=== PATIENT | male | born 1965 | race Caucasian/White ===

== ENCOUNTER 2021-03-11 21:28 | Outpatient (REF) | payer BC, SELFPAY ==
[2021-03-11 21:48] LABS: Abs Immature Grans 0.02 10^3/uL (0.0-0.06); Absolute Basophil Count 0.04 10^3/uL (0.0-0.2); Absolute Eosinophil Count 0.11 10^3/uL (0.0-0.7); Absolute Lymphocyte Count 1.34 10^3/uL (1.2-3.4); Absolute Monocyte Count 0.52 10^3/uL (0.1-0.8); Absolute Neutrophil Count 5.13 10^3/uL (1.2-6.7); Basophils % 0.6; Eosinophils % 1.5; HCT 46.8 % (40.0-50.0); HGB 15.1 g/dL (13.5-17.5); Immature Grans % 0.3; Lymphocytes % 18.7; MCH 30.3 pg (27.0-33.0); MCHC 32.3 % (32.0-36.0); MCV 93.8 fL (80-95); MPV 10.4 fL (8.0-11.0); Monocytes % 7.3; Neutrophils % 71.6; Nucleated RBC 0 %; Platelet Count 241 10^3/uL (130-400); RBC 4.99 10^6/uL (4.36-5.78); RDW 12.7 % (11.8-14.1); RDW-SD 43.9 fL; WBC 7.16 10^3/uL (4.4-10.8)
[2021-03-11 22:02] LABS: Anion Gap 9.3 mmol/L (3-11); BUN 25 mg/dL (7-18); CO2 27.7 mmol/L (21.0-32.0); CREATININE 1.2 mg/dL (0.70-1.30); Calcium 8.9 mg/dL (8.5-10.1); Calculated LDL 132 mg/dL (<100); Chloride 106 mmol/L (98-107); Cholesterol 210 mg/dL (<200); Glucose 88 mg/dL (74-106); HDL Cholesterol 48 mg/dL (40-60); Sodium 143 mmol/L (136-145); TSH (W/Ref FT4) 1.53 uIU/mL (0.36-3.74); Triglyceride 153 mg/dL (<150)
[2021-03-14 09:45] LABS: PSA, Screening 2.9 ng/mL (0.0-3.5)
== END 2021-03-11 21:29 | disposition home or self-care (01) ==
LOC: NCHCN 21:28
PROVIDERS: PCP Internal Medicine; Visit Provider Internal Medicine
DX: K20.80 Other esophagitis without bleeding (principal); I48.0 Paroxysmal atrial fibrillation; Z13.220 Encounter for screening for lipoid disorders; Z12.5 Encounter for screening for malignant neoplasm of prostate; Z00.00 Encounter for general adult medical examination without abnormal findings; N20.0 Calculus of kidney
CPT/HCPCS: 80048; 80061; 84153; 84443; 85025

== ENCOUNTER 2022-07-21 21:16 | Outpatient (REF) | payer BC, SELFPAY ==
--- OUTSIDE RECORDS SUMMARY | 2022-07-21 21:27 | XMS_ITS | CCD ---
Author Name Unknown Address [address] [place] [address] [id number] Organization Unknown Address [address] [place] [address] [id number] Care Team Providers Care [facility] Social Worker Name Role Phone HE GILBERT Attending Physician [phone] Vital Signs Unknown or Not Available. Allergies Allergy Code Allergy Type Reaction Status PENICILLINS (CLASS) 0 Drug allergy Hives Act ariel Procedures Unknown or Not Available. History of Immunizations Unknown or Not Available. Problems Unknown or Not Available. Results Unknown or Not Available. Active Medications Medication Code Dose Units Frequency Route Modificatio n Start Date/Time Dilt-XR 120MG Oral Capsule, Extended Release, 24 HR [id number] 120 MILLIGRAMS DAILY ORAL 05/2018 09:32 Prescription Detail TAKE 120 MILLIGRAMS ORAL DAILY Pantoprazole Sodium 20MG Oral Tablet, Enteric Coated [id number] 20 MILLIGRAMS DAILY ORAL 05/2018 09:32 Prescription Detail TAKE 20 MILLIGRAMS ORAL DAILY Osteo Bi-Flex 200 MG-250 MG Oral Tablet [id number] 1 EACH TWICE A DAY ORAL 06/07 12:20 Prescription Detail TAKE 1 EACH ORAL TWICE A DAY Medications Administered During Visit Unknown or Not Available. Encounters Encounter Diagnosis Diagnosis Code Start Date Strain of muscle, fascia and tendon of the posterior muscle group at thigh level, left thigh, subsequent encounter [id number] 05/13/2021 Social History Smoking Status Code Start Date End Date Never smoker [id number] Patient Decision Aids Unknown or Not Available. Discharge Instructions You were admitted to [facility] on 05/13/2021 15:16 with a principal diagnosis of Strain of msl/fasc/tnd post grp at thi lev, left thigh, subs You were discharged from [facility] on 06/10/2021 13:07 Should you have any questions prior to discharge, please contact a member of your healthcare team. If you have left the hospital and have any questions, please contact your primary care physician. Chief Complaint and Reason For Visit Unknown or Not Available. Function Status Unknown or Not Available. Plan of Care Unknown or Not Available. Referral/Transition of Care Unknown or Not Available.
--- OUTSIDE RECORDS SUMMARY | 2022-07-21 21:27 | XMS_ITS | CCD ---
Author Name Unknown Address [address] [place] [address] [phone] Organization Unknown Address [address] [place] [address] [phone] Care Team Providers Care Industrial Relations Commissioner Name Role Phone JAMES PEACE Attending Physician [phone] JAMES PEACE Rounding (Secondary) Physician [phone] Vital Signs Unknown or Not Available. Allergies Allergy Code Allergy Type Reaction Status PENICILLINS (CLASS) 0 Drug allergy Hives Act ariel Procedures Unknown or Not Available. History of Immunizations Unknown or Not Available. Problems Unknown or Not Available. Results Unknown or Not Available. Active Medications Medication Code Dose Units Frequency Route Modificatio n Start Date/Time Dilt-XR 120MG Oral Capsule, Extended Release, 24 HR [id number] 120 MILLIGRAMS DAILY ORAL 05/2018 09:32 Prescription Detail TAKE 120 MILLIGRAMS ORAL DAILY Pantoprazole Sodium 20MG Oral Tablet, Enteric Coated [id number] 20 MILLIGRAMS DAILY ORAL 05/2018 09:32 Prescription Detail TAKE 20 MILLIGRAMS ORAL DAILY Osteo Bi-Flex 200 MG-250 MG Oral Tablet [id number] 1 EACH TWICE A DAY ORAL 06/07 12:20 Prescription Detail TAKE 1 EACH ORAL TWICE A DAY Medications Administered During Visit Unknown or Not Available. Encounters Encounter Diagnosis Diagnosis Code Start Date Paroxysmal atrial fibrillation I480 0 07/15/2021 Social History Smoking Status Code Start Date End Date Never smoker [id number] Patient Decision Aids Unknown or Not Available. Discharge Instructions You were admitted to [facility] on 07/15/2021 11:33 with a principal diagnosis of Paroxysmal atrial fibrillation You were discharged from [facility] on 07/15/2021 00:00 Should you have any questions prior to [...]
--- OUTSIDE RECORDS SUMMARY | 2022-07-21 21:27 | XMS_ITS | CCD ---
Author Name Unknown Address [address] [place] [address] [phone] Organization Unknown Address [address] [place] [address] [phone] Care Team Providers Care Engineer Specialist Name Role Phone HE GILBERT Attending Physician [phone] HE GILBERT (Secondary) Physician [phone] Vital Signs Unknown or Not Available. Allergies Allergy Code Allergy Type Reaction Status PENICILLINS (CLASS) 0 Drug allergy Hives Act ariel Procedures Unknown or Not Available. History of Immunizations Unknown or Not Available. Problems Unknown or Not Available. Results Unknown or Not Available. Active Medications Medication Code Dose Units Frequency Route Modificatio n Start Date/Time Dilt-XR 120MG Oral Capsule, Extended Release, 24 HR [id number] 120 MILLIGRAMS DAILY ORAL 05/2018 09:32 Prescription Detail TAKE 120 MILLIGRAMS ORAL DAILY Pantoprazole Sodium 20MG Oral Tablet, Enteric Coated [id number] 20 MILLIGRAMS DAILY ORAL 05/2018 09:32 Prescription Detail TAKE 20 MILLIGRAMS ORAL DAILY Osteo Bi-Flex 200 MG-250 MG Oral Tablet [id number] 1 EACH TWICE A DAY ORAL 06/07 12:20 Prescription Detail TAKE 1 EACH ORAL TWICE A DAY Medications Administered During Visit Unknown or Not Available. Encounters Encounter Diagnosis Diagnosis Code Start Date Strain of muscle and/or tendon of thigh [id number] 04/22/2021 Social History Smoking Status Code Start Date End Date Never smoker [id number] Patient Decision Aids Unknown or Not Available. Discharge Instructions You were admitted to [facility] on 04/22/2021 12:27 with a principal diagnosis of Strain of muscle, fascia and tendon of the posterior muscle group at thigh level, left thigh, initial encounter You were discharged from [facility] on 04/22/2021 11:43 Should you have any questions prior to [...]
--- OUTSIDE RECORDS SUMMARY | 2022-07-21 21:28 | XMS_ITS | CCD ---
Author Name Unknown Address [address] [place] [address] [phone] Organization Unknown Address [address] [place] [address] [phone] Care Team Providers Care Live In Housekeeper Nanny Name Role Phone JAMES PEACE Attending Physician [phone] JAMES PEACE Rounding (Secondary) Physician [phone] Vital Signs Unknown or Not Available. Allergies Allergy Code Allergy Type Reaction Status PENICILLINS (CLASS) 0 Drug allergy Hives Act ariel Procedures Unknown or Not Available. History of Immunizations Unknown or Not Available. Problems Unknown or Not Available. Results Unknown or Not Available. Active Medications Medication Code Dose Units Frequency Route Modificatio n Start Date/Time Dilt-XR 120MG Oral Capsule, Extended Release, 24 HR [id number] 120 MILLIGRAMS DAILY ORAL 05/2018 09:32 Prescription Detail TAKE 120 MILLIGRAMS ORAL DAILY Pantoprazole Sodium 20MG Oral Tablet, Enteric Coated [id number] 20 MILLIGRAMS DAILY ORAL 05/2018 09:32 Prescription Detail TAKE 20 MILLIGRAMS ORAL DAILY Osteo Bi-Flex 200 MG-250 MG Oral Tablet [id number] 1 EACH TWICE A DAY ORAL 06/07 12:20 Prescription Detail TAKE 1 EACH ORAL TWICE A DAY Medications Administered During Visit Unknown or Not Available. Encounters Encounter Diagnosis Diagnosis Code Start Date Paroxysmal atrial fibrillation I480 0 08/25/2021 Social History Smoking Status Code Start Date End Date Never smoker [id number] Patient Decision Aids Unknown or Not Available. Discharge Instructions You were admitted to [facility] on 08/25/2021 09:13 with a principal diagnosis of Paroxysmal atrial fibrillation You were discharged from [facility] on 08/25/2021 00:00 Should you have any questions prior [...]
--- OUTSIDE RECORDS SUMMARY | 2022-07-21 21:28 | XMS_ITS | CCD ---
Author Name Unknown Address [address] [place] [address] [id number] Organization Unknown Address [address] [place] [address] [phone] Care Team Providers Care Educational Advisor Name Role Phone JAMES PEACE Attending Physician [phone] JAMES PEACE Rounding (Secondary) Physician [phone] Vital Signs Unknown or Not Available. Allergies Allergy Code Allergy Type Reaction Status PENICILLINS (CLASS) 0 Drug allergy Hives Act ariel Procedures Unknown or Not Available. History of Immunizations Unknown or Not Available. Problems Unknown or Not Available. Results Unknown or Not Available. Active Medications Medication Code Dose Units Frequency Route Modificatio n Start Date/Time Dilt-XR 120MG Oral Capsule, Extended Release, 24 HR [id number] 120 MILLIGRAMS DAILY ORAL 05/2018 09:32 Prescription Detail TAKE 120 MILLIGRAMS ORAL DAILY Pantoprazole Sodium 20MG Oral Tablet, Enteric Coated [id number] 20 MILLIGRAMS DAILY ORAL 05/2018 09:32 Prescription Detail TAKE 20 MILLIGRAMS ORAL DAILY Osteo Bi-Flex 200 MG-250 MG Oral Tablet [id number] 1 EACH TWICE A DAY ORAL 06/07 12:20 Prescription Detail TAKE 1 EACH ORAL TWICE A DAY Medications Administered During Visit Unknown or Not Available. Encounters Encounter Diagnosis Diagnosis Code Start Date Supraventricular tachycardia I471 12/2021 Social History Smoking Status Code Start Date End Date Never smoker [id number] Patient Decision Aids Unknown or Not Available. Discharge Instructions You were admitted to [facility] on 08/15/2021 14:42 with a principal diagnosis of Supraventricular tachycardia You were discharged from [facility] on 08/15/2021 00:00 Should you have any questions prior [...]
[2022-07-21 22:09] LABS: ALT 30 U/L (16-63); AST 21 U/L (15-37); Albumin 3.9 g/dL (3.4-5.0); Alkaline Phosphatase 93 U/L (46-116); Anion Gap 8.2 mmol/L (3-11); BUN 20 mg/dL (7-18); Bilirubin, Total 0.3 mg/dL (0.2-1.0); CO2 26.8 mmol/L (21.0-32.0); CREATININE 1.1 mg/dL (0.70-1.30); Calcium 9.2 mg/dL (8.5-10.1); Calculated LDL 133 mg/dL (<100); Chloride 108 mmol/L (98-107); Cholesterol 214 mg/dL (<200); Glucose 89 mg/dL (74-106); HDL Cholesterol 49 mg/dL (40-60); Potassium 4.2 mmol/L (3.5-5.1); Sodium 143 mmol/L (136-145); Total Protein 7.2 g/dL (6.4-8.2); Triglyceride 163 mg/dL (<150)
[2022-07-24 11:05] LABS: PSA, Screening 3.7 ng/mL (<=3.5)
== END 2022-07-21 21:17 | disposition home or self-care (01) ==
LOC: NCHCN 21:16
PROVIDERS: PCP Internal Medicine; Visit Provider Internal Medicine
DX: I48.0 Paroxysmal atrial fibrillation (principal); N40.0 Benign prostatic hyperplasia without lower urinary tract symptoms; Z12.5 Encounter for screening for malignant neoplasm of prostate; R79.89 Other specified abnormal findings of blood chemistry
CPT/HCPCS: 80053; 80061; 84153

== ENCOUNTER 2023-01-05 13:17 | Outpatient (REF) | payer BC, SELFPAY | END 2023-01-05 13:18 | disposition home or self-care (01) | LOC: NCHCN 13:17 | PROVIDERS: PCP Internal Medicine; Visit Provider Internal Medicine | DX: R97.20 Elevated prostate specific antigen [PSA] (principal); Z12.5 Encounter for screening for malignant neoplasm of prostate | CPT/HCPCS: 84153 ==

== ENCOUNTER 2024-01-14 08:23 | Outpatient (REF) | payer BC, SELFPAY ==
[2024-01-14 15:20] LABS: HCT 46.8 % (40.0-50.0); HGB 15.7 g/dL (13.5-17.5); MCH 30.5 pg (27.0-33.0); MCHC 33.5 % (32.0-36.0); MCV 91 fL (80-95); MPV 10.3 fL (8.0-11.0); Platelet Count 230 10^3/uL (130-400); RBC 5.14 10^6/uL (4.36-5.78); RDW 12.8 % (11.8-14.1); RDW-SD 42.6 fL; WBC 6.11 10^3/uL (4.4-10.8)
[2024-01-14 15:35] LABS: Anion Gap 13.2 mmol/L (3-11); BUN 17 mg/dL (7-18); CO2 22.8 mmol/L (21.0-32.0); CREATININE 1.1 mg/dL (0.70-1.30); Calcium 8.9 mg/dL (8.5-10.1); Calculated LDL 137 mg/dL (<100); Chloride 109 mmol/L (98-107); Cholesterol 200 mg/dL (<200); Estimated GFR 77.33 (mL/min/1.73m2); Glucose 92 mg/dL (74-106); HDL Cholesterol 54 mg/dL (40-60); Potassium 4.3 mmol/L (3.5-5.1); Sodium 145 mmol/L (136-145); Triglyceride 46 mg/dL (<150)
[2024-01-14 22:43] LABS: PSA, Screening 3.3 ng/mL (<=3.5)
== END 2024-01-14 08:24 | disposition home or self-care (01) ==
LOC: NCHCN 08:23
PROVIDERS: PCP Internal Medicine; Visit Provider Internal Medicine
DX: E78.5 Hyperlipidemia, unspecified (principal); Z12.5 Encounter for screening for malignant neoplasm of prostate; K20.90 Esophagitis, unspecified without bleeding
CPT/HCPCS: 80048; 80061; 84153; 85027

== ENCOUNTER 2025-01-19 07:53 | Outpatient (REF) | payer BC, SELFPAY ==
[2025-01-19 17:12] LABS: HCT 45.4 % (40.0-50.0); HGB 14.8 g/dL (13.5-17.5); MCH 29.5 pg (27.0-33.0); MCHC 32.6 % (32.0-36.0); MCV 91 fL (80-95); MPV 10.7 fL (8.0-11.0); Platelet Count 220 10^3/uL (130-400); RBC 5.01 10^6/uL (4.36-5.78); RDW 13.2 % (11.8-14.1); RDW-SD 44.2 fL; WBC 5.96 10^3/uL (4.4-10.8)
[2025-01-19 17:36] LABS: Anion Gap 12.7 mmol/L (3-11); BUN 17 mg/dL (7-18); CO2 23.3 mmol/L (21.0-32.0); Calcium 8.5 mg/dL (8.5-10.1); Calculated LDL 137 mg/dL (<100); Chloride 106 mmol/L (98-107); Cholesterol 200 mg/dL (<200); Estimated GFR 69.23 (mL/min/1.73m2); Glucose 91 mg/dL (74-106); HDL Cholesterol 53 mg/dL (>or=40); Potassium 3.9 mmol/L (3.5-5.1); Sodium 142 mmol/L (136-145); Triglyceride 50 mg/dL (<150)
[2025-01-20 20:05] LABS: PSA, Screening 4.4 ng/mL (<=4.5)
== END 2025-01-19 07:54 | disposition home or self-care (01) ==
LOC: NCHCN 07:53
PROVIDERS: PCP Internal Medicine; Visit Provider Internal Medicine
DX: I48.0 Paroxysmal atrial fibrillation (principal); Z12.5 Encounter for screening for malignant neoplasm of prostate; E78.5 Hyperlipidemia, unspecified
CPT/HCPCS: 80048; 80061; 84153; 85027